=== PATIENT | male | born 1965 | race Caucasian/White ===

== ENCOUNTER → 2016-06-02 | Outpatient (CLI) | payer OTHER ==
[~2016-06-02] MED LIST: ALLERGY INJECTION; KEFLEX PO; NO MEDICATIONS; SINGULAIR; SUDAFED30 M1 PO; VIBRAMYCIN100 M1 PO; ZYRTEC
--- NOTE | ~2016-06-02 | EKG ---
PATIENT: YURI ZAZUETA UNIT #: [id number] Ventricular Rate: 77 BPM Atrial Rate: 77 BPM P-R Interval: 162 ms QRS Duration: 74 ms Q-T Interval: 380 ms QTC Calculation(Bezet): 430 ms P [place]: 35 degrees Calculated R [place]: 12 degrees Calculated T [place]: 28 degrees Diagnosis Line: Normal sinus rhythm Diagnosis Line: Normal ECG Diagnosis Line: No previous ECGs available Diagnosis Line: Confirmed by JENNIFER YUEN MD ([id number]) on 06/02/2016 Diagnosis Line: 4:46:23 PM INTERPRETING MD: WILFRID URIOSTEGUI
[2016-06-02 09:26] LABS: HEMATOCRIT 43.1 % (38.0-50.0); MEAN CELL VOLUME 85.4 FL (83-96); MEAN CORPUSCULAR HEMOGLOBIN 29.8 PG (28-34); MEAN CORPUSCULAR HGB CONC 34.9 g/dL (30-36); MEAN PLATELET VOLUME 9.2 FL (6.5-11.5); RED BLOOD COUNT 5.05 X10e (3.90-5.60); RED CELL DISTRIBUTION WIDTH 13.5 % (11.0-15.5); WHITE BLOOD COUNT 8.5 X10e3 (4.0-10.5)
[2016-06-02 10:19] LABS: BLOOD UREA NITROGEN 23 mg/dL (9-23); BUN/CREATININE RATIO 25.55; CALCIUM SERUM 9.2 mg/dL (8.4-10.2); CARBON DIOXIDE 28 mmol/L (22-31); CHLORIDE 100 mmol/L (100-111); CREATININE SERUM 0.9 mg/dL (0.6-1.4); GLOM FILT RATE Estimated ABOVE60 mL/min (>60); GLUCOSE FASTING 89 mg/dL (70-110); POTASSIUM 4.3 mmol/L (3.5-5.1); SODIUM 136 mmol/L (135-145)
== END | disposition home or self-care (01) ==
LOC: CRAD 09:03
PROVIDERS: Specialist
DX: J32.9 Chronic sinusitis, unspecified (principal)
CPT/HCPCS: 36415; 80048; 85027; 93005